=== PATIENT | male | born 1980 | race Caucasian/White ===

== ENCOUNTER 2017-01-25 16:27 | Emergency (ER) | payer OTHER | END 2017-01-25 19:00 | disposition home or self-care (01) | LOC: ER1 16:27 | DX: S39.012A Strain of muscle, fascia and tendon of lower back, initial encounter (principal); J45.909 Unspecified asthma, uncomplicated; R11.0 Nausea; F17.210 Nicotine dependence, cigarettes, uncomplicated; Z79.899 Other long term (current) drug therapy; W01.0XXA Fall on same level from slipping, tripping and stumbling without subsequent striking against object, initial encounter; Y92.69 Other specified industrial and construction area as the place of occurrence of the external cause; Y99.0 Civilian activity done for income or pay | CPT/HCPCS: 72131; 96372; 99284; J1885 ==

== ENCOUNTER → 2020-11-24 | Day surgery (SDC) | payer OTHER ==
[~2020-11-24] MED LIST: HYDROCODON-ACE1 EAC2 PO; METOPROLOL SUCC25 MG PO; NAPROSYN500 MG PO; PRILOSEC OTC20 MG PO
== END | disposition home or self-care (01) ==
LOC: OR 07:30
DX: D17.1 Benign lipomatous neoplasm of skin and subcutaneous tissue of trunk (principal); I49.9 Cardiac arrhythmia, unspecified; J45.909 Unspecified asthma, uncomplicated; E66.9 Obesity, unspecified; F41.9 Anxiety disorder, unspecified; Z68.42 Body mass index [BMI] 45.0-49.9, adult
CPT/HCPCS: J0690; J1100; J2001; J2250; J2405; J2704; J3010; J7120

== ENCOUNTER → 2021-07-13 | Outpatient (CLI) | payer OTHER | LOC: EMI 15:51 | DX: S83.206D Unspecified tear of unspecified meniscus, current injury, right knee, subsequent encounter (principal); S72.411D Displaced unspecified condyle fracture of lower end of right femur, subsequent encounter for closed fracture with routine healing | CPT/HCPCS: 73721 ==

== ENCOUNTER → 2021-08-25 | Outpatient (CLI) | payer OTHER ==
[2021-08-25 14:47] LABS: HEMOGLOBIN 13.9 gm/dl (14.0-17.5); RED BLOOD COUNT 5.18 M/UL (4.20-5.50); WHITE BLOOD COUNT 10.7 K/UL (4.5-11.0)
[2021-08-26 07:11] LABS: A/G RATIO 1.4 (1.2-2.2); BILIRUBIN, TOTAL 0.4 mg/dL (0.0-1.2); CALCIUM, SERUM 9.4 mg/dL (8.7-10.2); CREATININE, SERUM 0.81 mg/dL (0.76-1.27); POTASSIUM, SERUM 4.3 mmol/L (3.5-5.2); PROTEIN, TOTAL, SERUM 7.3 g/dL (6.0-8.5)
[2021-08-26 16:15] LABS: CHOLESTEROL, TOTAL 153 mg/dL (100-199); HDL SIZE 9.4 nm (>=9.2); HDL-C 49 mg/dL (>39); HDL-P (TOTAL) 32.2 umol/L (>=30.5); LARGE HDL-P 5.6 umol/L (>=4.8); LARGE VLDL-P 2.8 nmol/L (<=2.7); LDL SIZE 20.8 nm (>20.5); LDL SIZE 20.8 nm (>=20.8); LDL-C 85 mg/dL (0-99); LDL-P 1153 nmol/L (<1000); LP-IR SCORE 50 (<=45); SMALL LDL-P 566 nmol/L (<=527); TRIGLYCERIDES 106 mg/dL (0-149); VLDL SIZE 48.9 nm (<=46.6)
== END ==
LOC: LAB 14:15
PROVIDERS: Emergency Medicine
DX: I10 Essential (primary) hypertension (principal); M13.861 Other specified arthritis, right knee
CPT/HCPCS: 36415; 80053; 80061; 83704; 84550; 85025

== ENCOUNTER 2021-11-10 10:36 | Emergency (ER) | payer OTHER ==
[2021-11-10 11:32] LABS: RED BLOOD COUNT 5.28 M/UL (4.20-5.50); WHITE BLOOD COUNT 11.1 K/UL (4.5-11.0)
[2021-11-10 12:05] LABS: BUN/CREATININE RATIO 22 (0-10)
== END 2021-11-10 13:48 | disposition home or self-care (01) ==
LOC: ER1 10:36
PROVIDERS: Emergency Medicine
DX: I10 Essential (primary) hypertension (principal); F17.210 Nicotine dependence, cigarettes, uncomplicated; R55 Syncope and collapse; R42 Dizziness and giddiness
CPT/HCPCS: 80048; 82550; 82553; 84484; 85025; 93005; 99285; Q9967

== ENCOUNTER → 2021-11-21 | Outpatient (CLI) | payer OTHER | LOC: US 14:30 | DX: R55 Syncope and collapse (principal); R06.02 Shortness of breath; I65.23 Occlusion and stenosis of bilateral carotid arteries | CPT/HCPCS: 93880 ==

== ENCOUNTER → 2021-11-25 | Outpatient (CLI) | payer OTHER | LOC: CT 15:19 | DX: R55 Syncope and collapse (principal); R53.83 Other fatigue; R06.02 Shortness of breath; G47.13 Recurrent hypersomnia | CPT/HCPCS: 70450 ==

== ENCOUNTER → 2022-02-02 | Outpatient (CLI) | payer OTHER | LOC: EDSTATUS 09:15 → ECHO 09:15 → CATH 09:15 | DX: R55 Syncope and collapse (principal); R00.2 Palpitations; R00.0 Tachycardia, unspecified | CPT/HCPCS: ECHO; 93306 ==

== ENCOUNTER → 2022-02-15 | Outpatient (CLI) | payer OTHER | LOC: HEART 5 02-06 13:30 | DX: R00.2 Palpitations (principal); R00.0 Tachycardia, unspecified; R55 Syncope and collapse ==

== ENCOUNTER → 2022-04-25 | Outpatient (CLI) | payer OTHER ==
[2022-04-25 11:09] LABS: BUN/CREATININE RATIO 19 (0-10)
== END ==
LOC: NM 09:00
PROVIDERS: Physician Assistant
DX: I10 Essential (primary) hypertension (principal); R06.02 Shortness of breath; I20.9 Angina pectoris, unspecified; R55 Syncope and collapse; R00.0 Tachycardia, unspecified; R00.2 Palpitations
CPT/HCPCS: 36415; 78452; 80053; 80061; 83735; 84439; 84443; 85379; 93017; A9502; J2785